=== PATIENT | male | born 1970 | race Caucasian/White ===

== ENCOUNTER 2017-08-15 10:12 | Emergency (ER) | payer SELFPAY ==
[2017-08-15 11:02] VITALS: BP 178/92
--- NOTE | 2017-08-15 11:33 | RAD ---
Indication: Lateral LEFT ankle pain following injury yesterday. Comparison: No relevant prior exams available on the [facility] P[facility] for comparison. Technique: AP, mortise, and lateral views LEFT ankle. Report: Negative for fracture or malalignment. Talocrural joint effusion. Os trigonum accessory ossicle. Soft tissue swelling most prominent over the lateral malleolus. IMPRESSION: 1. Negative for fracture or malalignment. 2. Consider lateral supporting ligament injury given magnitude of lateral soft tissue swelling and presence of talocrural joint effusion.
--- NOTE | 2017-08-15 11:44 | ED ---
Lower Extremity - HPI Summary HPI Summary: 47yr old male with the complaint of left ankle pain. Onset yesterday when he twisted his ankle cutting wood. The patient denies proximal leg pain, foot pain , and medial ankle pain. Pain localized to lateral ankle with STS. No other complaints. - History of Current Complaint Chief Complaint: UCLowerExtremity Stated Complaint: LFT ANKLE INJURY Time Seen by Provider: 08/15/17 11:07 Pain Intensity: 7 - Allergies/Home Medications Allergies/Adverse Reactions: Allergies Allergy/AdvReac Type Severity Reaction Status Date / Time No Known Allergies Allergy Verified 08/15/17 11:03 PMH/Surg Hx/FS Hx/Imm Hx Cardiovascular History: Reports: Hx Hypertension Infectious Disease History: No Infectious Disease History: Denies: Traveled Outside the [place] in Last 30 Days - Family History Known Family History: Positive: None - Social History Occupation: Employed Full-time Lives: With Family Alcohol Use: Weekly Alcohol Amount: 20 beers weekly Substance Use Type: Reports: None Smoking Status (MU): Heavy Every Day Tobacco Smoker Type: Cigarettes Amount Used/How Often: PPD/ daily Length of Time of Smoking/Using Tobacco: 30 years Have You Smoked in the Last Year: Yes Review of Systems Constitutional: Negative Positive: Other - ankle pain All Other Systems Reviewed And Are Negative: Yes Physical Exam Triage Information Reviewed: Yes Vital Signs On Initial Exam: Initial Vitals Temp Pulse Resp BP Pulse Ox 99.7 F 88 20 178/92 100 08/15/17 10:56 08/15/17 10:56 08/15/17 10:56 08/15/17 10:56 08/15/17 10:56 Vital Signs Reviewed: Yes Appearance: Positive: Well-Appearing, No Pain Distress Skin: Positive: Warm, Skin Color Reflects Adequate Perfusion Head/Face: Positive: Normal Head/Face Inspection Eyes: Positive: EOMI ENT: Positive: Normal ENT inspection, Pharynx normal, TMs normal Neck: Positive: Nontender, No Lymphadenopathy Respiratory/Lung Sounds: Positive: Clear to Auscultation, Breath Sounds Present Cardiovascular: Positive: RRR. Negative: Murmur Abdomen Description: Positive: Nontender Musculoskeletal: Positive: Other - Patient with STS over the Lateral Maleolus with tenderness. No proximal fibular head tenderness. No tenderness over the medial maleolus. No tenderness over the foot and the base of 5th metatarsal. Neurological: Positive: Sensory/Motor Intact, Alert, Oriented to Person Place, Time, CN Intact II-III, Speech Normal Psychiatric: Positive: Normal - [place] Coma Scale Best Eye Response: 4 - Spontaneous Best Motor Response: 6 - Obeys Commands Best Verbal Response: 5 - Oriented Coma Scale Total: 15 Diagnostics - Vital Signs Vital Signs Temp Pulse Resp BP Pulse Ox 08/15/17 10:56 99.7 F 88 20 178/92 100 - Laboratory Lab Statement: Any lab studies that have been ordered have been reviewed, and results considered in the medical decision making process. - Radiology left ankle Xray Interpretation: Positive (See Comments) - STS ankle Radiology Interpretation Completed By: Radiologist Lower Extremity Course/Dx - Course Course Of Treatment: 47 yr old with ankle sprain. DC home on crutches, splint. FU with Orthopedics. - Diagnoses Provider Diagnoses: Left ankle sprain Discharge - Sign-Out/Discharge Documenting (check all that apply): Discharge/Admit/Transfer - Discharge Plan Condition: Good Disposition: HOME Patient Education Materials: Ankle Sprain (ED), Hypertension (ED) Referrals: No Primary Care Phys,NOPCP [Primary Care Provider] - 2 Days Aleksander Gonzalez MD [Medical Doctor] - 2 Days [facility] [place] [place] PHYSICIAN REFERRAL [Outside] - 2 Days - Billing Disposition and Condition Condition: GOOD Disposition: HOME
== END 2017-08-15 12:10 | disposition home or self-care (01) ==
LOC: UCCORT 10:12
DX: S93.402A Sprain of unspecified ligament of left ankle, initial encounter (principal); X50.0XXA Overexertion from strenuous movement or load, initial encounter; Y93.89 Activity, other specified; Y92.9 Unspecified place or not applicable; F17.210 Nicotine dependence, cigarettes, uncomplicated
CPT/HCPCS: 99213; G0463